=== PATIENT | male | born 1930 | race Caucasian/White ===

== ENCOUNTER 2018-08-25 15:10 | Emergency (ER) | payer MEDICARE ==
[~2018-08-25] VITALS: Ht 167.6 cm; Wt 83.4 kg
[2018-08-25 16:23] VITALS: BP 120/59
== END 2018-08-25 16:37 | disposition home or self-care (01) ==
LOC: ED 16:27
DX: J06.9 Acute upper respiratory infection, unspecified (principal); J45.909 Unspecified asthma, uncomplicated; Z86.73 Personal history of transient ischemic attack (TIA), and cerebral infarction without residual deficits
CPT/HCPCS: 71045; 93005; 99283

== ENCOUNTER 2019-01-25 08:42 | Inpatient (IN) | payer MEDICARE ==
[~2019-01-25] VITALS: Ht 167.6 cm; Wt 81.5 kg
--- NOTE | 2019-01-25 08:51 | NUR ---
Pt BIB EMS from home where pt lives with family for diarrhea x 3 days. Family felt pt was getting worse. Pt received ASA HAT SIZER. Pt has bilateral leg weakness and decresed sensation x [address]om cath in place, draining yellow, clear urine.
[2019-01-25] MEDS ORDERED: ASPI-515 PO (09:01)
[2019-01-25 09:26] LABS: BASOPHILS # (AUTO) 0.05 x10^3/uL (0-0.1); BASOPHILS % (AUTO) 1 % (0-1); EOSINOPHILS # (AUTO) 0.13 x10^3/uL (0-0.4); EOSINOPHILS % (AUTO) 2 % (1-7); LYMPHOCYTES # (AUTO) 0.91 x10^3/uL (1-3.4); LYMPHOCYTES % (AUTO) 11 % (22-44); MD NO; MEAN CORPUSCULAR HEMOGLOBIN 31.4 pg (27.5-34.5); MEAN CORPUSCULAR HGB CONC 33.6 g/dL (33.2-36.2); MEAN CORPUSCULAR VOLUME 93.6 fL (81-97); MEAN PLATELET VOLUME 7.4 fL (7.4-10.4); MONOCYTES # (AUTO) 0.62 x10^3/uL (0.2-0.8); MONOCYTES % (AUTO) 7 % (2-9); NEUTROPHILS # (AUTO) 6.61 x10^3/uL (1.8-6.8); NEUTROPHILS % (AUTO) 79 % (42-75); PLATELET COUNT 433 x10^3/uL (130-400); RED BLOOD COUNT 4.29 x10^6/uL (4.38-5.82); RED CELL DISTRIBUTION WIDTH 13.4 % (9.4-14.8)
--- NOTE | 2019-01-25 09:38 | NUR ---
CT PENDING LAB/CREATINE.
[2019-01-25 09:52] LABS: ALBUMIN 3.4 g/dL (3.4-5.0); CREATININE 1.09 mg/dL (0.7-1.3)
[2019-01-25 10:03] LABS: ANION GAP 6 mmol/L (5-15); CHLORIDE 107 mmol/L (98-107)
--- NOTE | 2019-01-25 10:09 | NUR ---
Report to [facility]
--- NOTE | 2019-01-25 10:21 | NUR ---
pt to ct now.
[2019-01-25] MEDS ORDERED: OMNIPAQUE 350 MG/ML, 100ML BOTTLE ONE (10:51)
[2019-01-25] MEDS ORDERED: hydrALAzine 20 MG/ML, 1ML IVPush PRN (13:00)
[2019-01-25] MEDS: HEPARIN 5,000 UNITS/ML, 1ML SQ SCH (17:17)
[2019-01-25 18:58] VITALS: BP 104/57
[2019-01-25 19:07] LABS: CLOSTRIDIUM DIFFICILE ANTIGEN NEGATIVE; CLOSTRIDIUM DIFFICILE TOXIN NEGATIVE (Negative)
[2019-01-26 00:18] VITALS: BP 103/48
[2019-01-26] MEDS: HEPARIN 5,000 UNITS/ML, 1ML SQ SCH ×3 (00:31→18:28)
[2019-01-26 05:02] LABS: BASOPHILS # (AUTO) 0.04 x10^3/uL (0-0.1); BASOPHILS % (AUTO) 1 % (0-1); EOSINOPHILS % (AUTO) 3 % (1-7); LYMPHOCYTES # (AUTO) 0.97 x10^3/uL (1-3.4); LYMPHOCYTES % (AUTO) 16 % (22-44); MD NO; MEAN CORPUSCULAR HEMOGLOBIN 31.1 pg (27.5-34.5); MEAN CORPUSCULAR HGB CONC 33.1 g/dL (33.2-36.2); MEAN CORPUSCULAR VOLUME 93.9 fL (81-97); MEAN PLATELET VOLUME 7.5 fL (7.4-10.4); MONOCYTES # (AUTO) 0.48 x10^3/uL (0.2-0.8); MONOCYTES % (AUTO) 8 % (2-9); NEUTROPHILS # (AUTO) 4.43 x10^3/uL (1.8-6.8); NEUTROPHILS % (AUTO) 72 % (42-75); PLATELET COUNT 360 x10^3/uL (130-400); RED BLOOD COUNT 4.04 x10^6/uL (4.38-5.82); RED CELL DISTRIBUTION WIDTH 13.4 % (9.4-14.8)
[2019-01-26 05:06] LABS: ANION GAP 6 mmol/L (5-15); CALCIUM 8.8 mg/dL (8.5-10.1); CHLORIDE 110 mmol/L (98-107)
[2019-01-26 05:10] LABS: ALANINE AMINOTRANSFERASE 28 U/L (12-78); ALKALINE PHOSPHATASE 87 U/L (45-117); BILIRUBIN,TOTAL 0.5 mg/dL (0.2-1.0); CREATININE 0.91 mg/dL (0.7-1.3)
[2019-01-26 07:38] VITALS: BP 111/64
[2019-01-26] MEDS: ASPIRIN 81 MG TABLET EC PO SCH (08:52)
[2019-01-26] MEDS ORDERED: GADOBUTROL 7.5 MMOL/7.5 ML PFS ONE (10:49)
[2019-01-26 12:59] VITALS: BP 113/70
[2019-01-26] MEDS: LOPERAMIDE 1 MG/5 ML, 10ML UDC PO PRN ×2 (15:32→21:12)
[2019-01-26] MEDS ORDERED: GABA-826 PO (15:42)
[2019-01-26] MEDS ORDERED: FLUT16SP NAS (15:45)
[2019-01-26] MEDS ORDERED: FURO20TA3 PO (15:47)
[2019-01-26] MEDS ORDERED: FLUO10CA7 PO (15:48)
[2019-01-26] MEDS ORDERED: OMEP20TA9 PO (15:49)
[2019-01-26 18:40] VITALS: BP 120/65
[2019-01-27] MEDS: HEPARIN 5,000 UNITS/ML, 1ML SQ SCH ×3 (01:00→16:11)
[2019-01-27 01:09] VITALS: BP 110/58
[2019-01-27 05:11] LABS: BASOPHILS # (AUTO) 0.03 x10^3/uL (0-0.1); BASOPHILS % (AUTO) 1 % (0-1); EOSINOPHILS # (AUTO) 0.17 x10^3/uL (0-0.4); EOSINOPHILS % (AUTO) 2 % (1-7); LYMPHOCYTES # (AUTO) 0.96 x10^3/uL (1-3.4); LYMPHOCYTES % (AUTO) 13 % (22-44); MD NO; MEAN CORPUSCULAR HEMOGLOBIN 32.1 pg (27.5-34.5); MEAN CORPUSCULAR HGB CONC 34.2 g/dL (33.2-36.2); MEAN CORPUSCULAR VOLUME 93.9 fL (81-97); MEAN PLATELET VOLUME 7.5 fL (7.4-10.4); MONOCYTES % (AUTO) 7 % (2-9); NEUTROPHILS % (AUTO) 77 % (42-75); PLATELET COUNT 417 x10^3/uL (130-400); RED BLOOD COUNT 4.03 x10^6/uL (4.38-5.82); RED CELL DISTRIBUTION WIDTH 13.1 % (9.4-14.8)
[2019-01-27 05:16] LABS: ALBUMIN 3.2 g/dL (3.4-5.0); ANION GAP 6 mmol/L (5-15); CALCIUM 8.6 mg/dL (8.5-10.1); CHLORIDE 104 mmol/L (98-107)
[2019-01-27 05:20] LABS: ALANINE AMINOTRANSFERASE 29 U/L (12-78); ALKALINE PHOSPHATASE 87 U/L (45-117); BILIRUBIN,TOTAL 0.5 mg/dL (0.2-1.0); CREATININE 0.92 mg/dL (0.7-1.3); TOTAL PROTEIN 6.4 g/dL (6.4-8.2)
[2019-01-27 07:36] VITALS: BP 112/77
[2019-01-27] MEDS: FLUOXETINE 10 MG CAP PO SCH (11:29)
[2019-01-27] MEDS ORDERED: LIDOCAINE-MPF 1%, 5ML ONE (12:15)
[2019-01-27 13:17] VITALS: BP 106/64
[2019-01-27] MEDS ORDERED: GADOBUTROL 7.5 MMOL/7.5 ML PFS ONE (13:36)
[2019-01-27] MEDS: ASPIRIN 81 MG TABLET EC PO SCH (16:00)
[2019-01-27] MEDS: FLUTICASONE NASAL SPRAY 16GM NAS SCH (19:46)
[2019-01-27 20:18] VITALS: BP 106/61
[2019-01-27] MEDS: LOPERAMIDE 1 MG/5 ML, 10ML UDC PO PRN (23:55)
[2019-01-28] MEDS: HEPARIN 5,000 UNITS/ML, 1ML SQ SCH ×3 (00:15→17:12)
[2019-01-28 01:16] VITALS: BP 105/45
[2019-01-28 05:31] LABS: CHLORIDE 108 mmol/L (98-107)
[2019-01-28 05:35] LABS: ALANINE AMINOTRANSFERASE 31 U/L (12-78); ALBUMIN 2.9 g/dL (3.4-5.0); ALKALINE PHOSPHATASE 75 U/L (45-117); ANION GAP 5 mmol/L (5-15); BILIRUBIN,TOTAL 0.3 mg/dL (0.2-1.0); CALCIUM 8.7 mg/dL (8.5-10.1); CREATININE 0.89 mg/dL (0.7-1.3); TOTAL PROTEIN 6.2 g/dL (6.4-8.2)
[2019-01-28 05:56] LABS: MEAN CORPUSCULAR HEMOGLOBIN 32.1 pg (27.5-34.5); MEAN CORPUSCULAR VOLUME 94.4 fL (81-97); MEAN PLATELET VOLUME 7.6 fL (7.4-10.4); PLATELET COUNT 337 x10^3/uL (130-400); RED BLOOD COUNT 4.01 x10^6/uL (4.38-5.82); RED CELL DISTRIBUTION WIDTH 13.4 % (9.4-14.8)
[2019-01-28 06:20] LABS: BASOPHILS # (AUTO) 0.05 x10^3/uL (0-0.1); BASOPHILS % (AUTO) 1 % (0-1); EOSINOPHILS # (AUTO) 0.23 x10^3/uL (0-0.4); EOSINOPHILS % (AUTO) 3 % (1-7); LYMPHOCYTES # (AUTO) 1.13 x10^3/uL (1-3.4); LYMPHOCYTES % (AUTO) 15 % (22-44); MD SCAN; MONOCYTES # (AUTO) 0.56 x10^3/uL (0.2-0.8); MONOCYTES % (AUTO) 8 % (2-9); NEUTROPHILS # (AUTO) 5.57 x10^3/uL (1.8-6.8); NEUTROPHILS % (AUTO) 74 % (42-75)
[2019-01-28 07:40] VITALS: BP 100/59
[2019-01-28] MEDS: FLUTICASONE NASAL SPRAY 16GM NAS SCH (08:42)
[2019-01-28] MEDS: FLUOXETINE 10 MG CAP PO SCH (08:43)
[2019-01-28] MEDS: ASPIRIN 81 MG TABLET EC PO SCH (08:43)
[2019-01-28] MEDS ORDERED: GADOBUTROL 7.5 MMOL/7.5 ML PFS ONE (10:42)
[2019-01-28 13:00] VITALS: BP 107/61
[2019-01-28 19:35] VITALS: BP 106/61
[2019-01-28] MEDS: LOPERAMIDE 1 MG/5 ML, 10ML UDC PO PRN (21:44)
[2019-01-29] MEDS: HEPARIN 5,000 UNITS/ML, 1ML SQ SCH ×4 (01:19→21:33)
[2019-01-29 01:51] VITALS: BP 92/51
[2019-01-29 03:18] VITALS: BP 97/57
[2019-01-29] MEDS ORDERED: ACETAMINOPHEN 325 MG TABLET PO ONE (03:30)
[2019-01-29] MEDS ORDERED: SODIUM CHLORIDE 0.9% 1,000ML IVBOLUS ONE (03:30)
[2019-01-29 05:22] VITALS: BP 100/59
[2019-01-29] MEDS: FLUOXETINE 10 MG CAP PO SCH (09:25)
[2019-01-29] MEDS: ASPIRIN 81 MG TABLET EC PO SCH (09:25)
[2019-01-29] MEDS: FLUTICASONE NASAL SPRAY 16GM NAS SCH (09:25)
[2019-01-29] MEDS ORDERED: ACETAMINOPHEN 325 MG TABLET PO PRN (12:00)
[2019-01-29 12:40] VITALS: BP 109/46
[2019-01-29 12:43] LABS: MICROSCOPIC AUTO
[2019-01-29] MEDS ORDERED: OMNIPAQUE 350 MG/ML, 100ML BOTTLE ONE (16:26)
[2019-01-29] MEDS ORDERED: VANCOMYCIN PER PHARMACY MC PRN (17:30)
[2019-01-29] MEDS ORDERED: VANCOMYCIN 1,900 MG in SODIUM CHLORIDE 0.9% 250 ML IV ONE (18:00)
[2019-01-29 19:18] VITALS: BP 104/61
[2019-01-30 01:02] VITALS: BP 113/67
[2019-01-30] MEDS: HEPARIN 5,000 UNITS/ML, 1ML SQ SCH ×3 (05:51→21:03)
[2019-01-30 07:50] VITALS: BP 104/51
[2019-01-30] MEDS: ASPIRIN 81 MG TABLET EC PO SCH (08:24)
[2019-01-30] MEDS: FLUTICASONE NASAL SPRAY 16GM NAS SCH (08:24)
[2019-01-30] MEDS: FLUOXETINE 10 MG CAP PO SCH (08:24)
[2019-01-30 13:11] VITALS: BP 103/55
[2019-01-30] MEDS ORDERED: VANCOMYCIN 1,500 MG in SODIUM CHLORIDE 0.9% 250 ML IV ONE (18:00)
[2019-01-30] MEDS ORDERED: ZOSYN PER PHARMACY MC PRN (20:00)
[2019-01-30] MEDS: CLINDAMYCIN PMX 600MG/50ML 50 ML IV SCH (21:03)
[2019-01-30 21:46] VITALS: BP 111/59
[2019-01-30] MEDS: PIPERACILLIN/TAZO/PMX 3.375GM 50 ML IV SCH (22:16)
[2019-01-31 01:24] VITALS: BP 104/44
[2019-01-31] MEDS: PIPERACILLIN/TAZO/PMX 3.375GM 50 ML IV SCH ×4 (04:10→21:47)
[2019-01-31] MEDS: CLINDAMYCIN PMX 600MG/50ML 50 ML IV SCH ×3 (05:09→22:39)
[2019-01-31] MEDS: HEPARIN 5,000 UNITS/ML, 1ML SQ SCH ×3 (05:09→21:47)
[2019-01-31 07:28] VITALS: BP 103/62
[2019-01-31] MEDS: ASPIRIN 81 MG TABLET EC PO SCH (09:13)
[2019-01-31] MEDS: FLUOXETINE 10 MG CAP PO SCH (09:13)
[2019-01-31] MEDS: FLUTICASONE NASAL SPRAY 16GM NAS SCH (09:15)
[2019-01-31 14:00] VITALS: BP 101/58
[2019-01-31 17:25] LABS: CREATININE 1.02 mg/dL (0.7-1.3)
[2019-01-31 19:36] VITALS: BP 109/64
[2019-02-01 01:25] VITALS: BP 102/53
[2019-02-01] MEDS: PIPERACILLIN/TAZO/PMX 3.375GM 50 ML IV SCH ×4 (04:05→22:16)
[2019-02-01 05:34] LABS: MEAN CORPUSCULAR HEMOGLOBIN 31.3 pg (27.5-34.5); MEAN CORPUSCULAR HGB CONC 33.3 g/dL (33.2-36.2); MEAN CORPUSCULAR VOLUME 94.1 fL (81-97); MEAN PLATELET VOLUME 7.7 fL (7.4-10.4); PLATELET COUNT 417 x10^3/uL (130-400); RED BLOOD COUNT 3.55 x10^6/uL (4.38-5.82); RED CELL DISTRIBUTION WIDTH 13.4 % (9.4-14.8)
[2019-02-01 05:39] LABS: CHLORIDE 103 mmol/L (98-107)
[2019-02-01 05:47] LABS: ALANINE AMINOTRANSFERASE 62 U/L (12-78); ALBUMIN 2.5 g/dL (3.4-5.0); ALKALINE PHOSPHATASE 65 U/L (45-117); ANION GAP 7 mmol/L (5-15); BILIRUBIN,TOTAL 0.4 mg/dL (0.2-1.0); CALCIUM 8.5 mg/dL (8.5-10.1); CREATININE 1.08 mg/dL (0.7-1.3); TOTAL PROTEIN 5.9 g/dL (6.4-8.2)
[2019-02-01] MEDS: HEPARIN 5,000 UNITS/ML, 1ML SQ SCH ×3 (05:50→22:16)
[2019-02-01] MEDS: CLINDAMYCIN PMX 600MG/50ML 50 ML IV SCH ×3 (05:50→23:17)
[2019-02-01 06:11] LABS: BASOPHILS # (AUTO) 0.01 x10^3/uL (0-0.1); BASOPHILS % (AUTO) 0 % (0-1); EOSINOPHILS # (AUTO) 0.02 x10^3/uL (0-0.4); EOSINOPHILS % (AUTO) 0 % (1-7); LYMPHOCYTES # (AUTO) 0.71 x10^3/uL (1-3.4); LYMPHOCYTES % (AUTO) 9 % (22-44); MD SCAN; MONOCYTES # (AUTO) 0.36 x10^3/uL (0.2-0.8); MONOCYTES % (AUTO) 5 % (2-9); NEUTROPHILS # (AUTO) 6.49 x10^3/uL (1.8-6.8); NEUTROPHILS % (AUTO) 85 % (42-75)
[2019-02-01 07:38] VITALS: BP 112/45
[2019-02-01] MEDS: FLUOXETINE 10 MG CAP PO SCH (09:36)
[2019-02-01] MEDS: ASPIRIN 81 MG TABLET EC PO SCH (09:36)
[2019-02-01] MEDS: FLUTICASONE NASAL SPRAY 16GM NAS SCH (09:36)
[2019-02-01 12:50] VITALS: BP 96/47
[2019-02-01 13:29] VITALS: BP 93/45
[2019-02-01 19:06] VITALS: BP 105/54
[2019-02-02 01:21] VITALS: BP 108/56
[2019-02-02] MEDS: PIPERACILLIN/TAZO/PMX 3.375GM 50 ML IV SCH ×4 (04:03→21:57)
[2019-02-02] MEDS: HEPARIN 5,000 UNITS/ML, 1ML SQ SCH ×3 (06:00→23:37)
[2019-02-02] MEDS: CLINDAMYCIN PMX 600MG/50ML 50 ML IV SCH (06:18)
[2019-02-02 06:57] VITALS: BP 120/55
[2019-02-02] MEDS: FLUTICASONE NASAL SPRAY 16GM NAS SCH (09:00)
[2019-02-02] MEDS: FLUOXETINE 10 MG CAP PO SCH (09:26)
[2019-02-02] MEDS: ASPIRIN 81 MG TABLET EC PO SCH (09:26)
[2019-02-02 13:04] VITALS: BP 105/55
[2019-02-02 18:51] VITALS: BP 102/53
[2019-02-03 01:01] VITALS: BP 105/56
[2019-02-03] MEDS: PIPERACILLIN/TAZO/PMX 3.375GM 50 ML IV SCH ×4 (04:05→21:35)
[2019-02-03 07:11] VITALS: BP 138/65
[2019-02-03] MEDS: HEPARIN 5,000 UNITS/ML, 1ML SQ SCH ×2 (08:36→17:21)
[2019-02-03] MEDS: FLUOXETINE 10 MG CAP PO SCH (08:36)
[2019-02-03] MEDS: FLUTICASONE NASAL SPRAY 16GM NAS SCH (08:36)
[2019-02-03] MEDS: ASPIRIN 81 MG TABLET EC PO SCH (08:36)
[2019-02-03] MEDS ORDERED: NITROFURANTOIN 50 MG CAPSULE PO SCH (11:30)
[2019-02-03 12:50] VITALS: BP 107/62
[2019-02-03 19:20] VITALS: BP 111/65
[2019-02-03] MEDS: SULFAMETH./TRIMETHOPRIM DS 800MG/160MG TABLET PO SCH (21:35)
[2019-02-04 01:08] VITALS: BP 109/62
[2019-02-04] MEDS: HEPARIN 5,000 UNITS/ML, 1ML SQ SCH ×3 (03:40→17:00)
[2019-02-04] MEDS: PIPERACILLIN/TAZO/PMX 3.375GM 50 ML IV SCH ×4 (03:40→20:19)
[2019-02-04 05:29] LABS: BASOPHILS # (AUTO) 0.04 x10^3/uL (0-0.1); BASOPHILS % (AUTO) 0 % (0-1); EOSINOPHILS # (AUTO) 0.11 x10^3/uL (0-0.4); EOSINOPHILS % (AUTO) 1 % (1-7); LYMPHOCYTES % (AUTO) 10 % (22-44); MD NO; MEAN CORPUSCULAR HEMOGLOBIN 30.9 pg (27.5-34.5); MEAN CORPUSCULAR VOLUME 93.7 fL (81-97); MEAN PLATELET VOLUME 7.3 fL (7.4-10.4); MONOCYTES # (AUTO) 0.54 x10^3/uL (0.2-0.8); MONOCYTES % (AUTO) 5 % (2-9); NEUTROPHILS # (AUTO) 8.69 x10^3/uL (1.8-6.8); NEUTROPHILS % (AUTO) 84 % (42-75); PLATELET COUNT 486 x10^3/uL (130-400); RED BLOOD COUNT 3.93 x10^6/uL (4.38-5.82); RED CELL DISTRIBUTION WIDTH 13.2 % (9.4-14.8)
[2019-02-04 05:36] LABS: % IRON SATURATION 48 % (20-55); ALANINE AMINOTRANSFERASE 51 U/L (12-78); ALBUMIN 2.5 g/dL (3.4-5.0); ANION GAP 7 mmol/L (5-15); CALCIUM 7.9 mg/dL (8.5-10.1); CHLORIDE 107 mmol/L (98-107); IRON LEVEL 104 mcg/dL (65-175); TOTAL IRON BINDING CAPACITY 216 mcg/dL (250-450)
[2019-02-04 05:40] LABS: ALKALINE PHOSPHATASE 67 U/L (45-117); BILIRUBIN,TOTAL 0.3 mg/dL (0.2-1.0); CREATININE 0.88 mg/dL (0.7-1.3); TOTAL PROTEIN 5.8 g/dL (6.4-8.2)
[2019-02-04 07:29] VITALS: BP 145/69
[2019-02-04] MEDS: ASPIRIN 81 MG TABLET EC PO SCH (08:44)
[2019-02-04] MEDS: FLUOXETINE 10 MG CAP PO SCH (08:44)
[2019-02-04] MEDS: SULFAMETH./TRIMETHOPRIM DS 800MG/160MG TABLET PO SCH ×2 (08:44→20:19)
[2019-02-04] MEDS: FLUTICASONE NASAL SPRAY 16GM NAS SCH (09:00)
[2019-02-04] MEDS: CALCIUM GLUCONATE 4.6 MEQ/10 ML IV SCH ×2 (09:30→13:06)
[2019-02-04] MEDS: ALBUMIN HUMAN 5% 3,000 ML IV SCH (13:07)
[2019-02-04 13:49] VITALS: BP 108/61
[2019-02-04 20:17] VITALS: BP 117/64
[2019-02-05 01:56] VITALS: BP 119/53
[2019-02-05] MEDS: PIPERACILLIN/TAZO/PMX 3.375GM 50 ML IV SCH ×4 (02:36→20:11)
[2019-02-05] MEDS: HEPARIN 5,000 UNITS/ML, 1ML SQ SCH ×3 (02:36→17:11)
[2019-02-05 07:37] LABS: ANION GAP 6 mmol/L (5-15); CHLORIDE 109 mmol/L (98-107); CREATININE 1.07 mg/dL (0.7-1.3)
[2019-02-05 07:41] LABS: BASOPHILS # (AUTO) 0.04 x10^3/uL (0-0.1); BASOPHILS % (AUTO) 0 % (0-1); EOSINOPHILS # (AUTO) 0.52 x10^3/uL (0-0.4); EOSINOPHILS % (AUTO) 4 % (1-7); LYMPHOCYTES # (AUTO) 1.08 x10^3/uL (1-3.4); LYMPHOCYTES % (AUTO) 8 % (22-44); MD NO; MEAN CORPUSCULAR HGB CONC 32.7 g/dL (33.2-36.2); MEAN CORPUSCULAR VOLUME 94.8 fL (81-97); MEAN PLATELET VOLUME 7.4 fL (7.4-10.4); MONOCYTES % (AUTO) 5 % (2-9); NEUTROPHILS # (AUTO) 10.98 x10^3/uL (1.8-6.8); NEUTROPHILS % (AUTO) 83 % (42-75); PLATELET COUNT 503 x10^3/uL (130-400); RED BLOOD COUNT 4.32 x10^6/uL (4.38-5.82); RED CELL DISTRIBUTION WIDTH 13.6 % (9.4-14.8)
[2019-02-05] MEDS: FLUTICASONE NASAL SPRAY 16GM NAS SCH (08:25)
[2019-02-05] MEDS: ASPIRIN 81 MG TABLET EC PO SCH (08:26)
[2019-02-05] MEDS: FLUOXETINE 10 MG CAP PO SCH (08:26)
[2019-02-05] MEDS: SULFAMETH./TRIMETHOPRIM DS 800MG/160MG TABLET PO SCH ×2 (08:26→20:11)
[2019-02-05 08:40] VITALS: BP 119/62
[2019-02-05] MEDS: CALCIUM GLUCONATE 4.6 MEQ/10 ML IV SCH (11:42)
[2019-02-05] MEDS: ALBUMIN HUMAN 5% 3,000 ML IV SCH (11:43)
[2019-02-05 13:45] VITALS: BP 116/69
[2019-02-05 19:15] VITALS: BP 109/54
[2019-02-06] VITALS (11 sets, daily range): BP systolic 106–120; BP diastolic 55–71
[2019-02-06] MEDS: HEPARIN 5,000 UNITS/ML, 1ML SQ SCH ×3 (01:54→17:49)
[2019-02-06] MEDS: PIPERACILLIN/TAZO/PMX 3.375GM 50 ML IV SCH ×4 (01:54→22:44)
[2019-02-06 05:18] LABS: BASOPHILS # (AUTO) 0.06 x10^3/uL (0-0.1); BASOPHILS % (AUTO) 1 % (0-1); EOSINOPHILS # (AUTO) 0.41 x10^3/uL (0-0.4); EOSINOPHILS % (AUTO) 4 % (1-7); LYMPHOCYTES % (AUTO) 12 % (22-44); MD NO; MEAN CORPUSCULAR HEMOGLOBIN 31.6 pg (27.5-34.5); MEAN CORPUSCULAR HGB CONC 33.6 g/dL (33.2-36.2); MEAN CORPUSCULAR VOLUME 93.9 fL (81-97); MEAN PLATELET VOLUME 7.3 fL (7.4-10.4); MONOCYTES # (AUTO) 0.54 x10^3/uL (0.2-0.8); MONOCYTES % (AUTO) 6 % (2-9); NEUTROPHILS # (AUTO) 7.43 x10^3/uL (1.8-6.8); NEUTROPHILS % (AUTO) 78 % (42-75); PLATELET COUNT 400 x10^3/uL (130-400); RED BLOOD COUNT 3.89 x10^6/uL (4.38-5.82); RED CELL DISTRIBUTION WIDTH 13.4 % (9.4-14.8)
[2019-02-06 05:21] LABS: CHLORIDE 111 mmol/L (98-107)
[2019-02-06 05:24] LABS: ANION GAP 6 mmol/L (5-15); CALCIUM 8.3 mg/dL (8.5-10.1); CREATININE 0.97 mg/dL (0.7-1.3)
[2019-02-06] MEDS: FLUTICASONE NASAL SPRAY 16GM NAS SCH (08:43)
[2019-02-06] MEDS: ASPIRIN 81 MG TABLET EC PO SCH (09:11)
[2019-02-06] MEDS: FLUOXETINE 10 MG CAP PO SCH (09:12)
[2019-02-06] MEDS: SULFAMETH./TRIMETHOPRIM DS 800MG/160MG TABLET PO SCH ×2 (09:12→22:43)
[2019-02-06] MEDS ORDERED: ALBUMIN HUMAN 5% 3,000 ML IV SCH (11:30)
[2019-02-06] MEDS: ALBUMIN HUMAN 5% 1,500 ML IV SCH (16:07)
[2019-02-06] MEDS: CALCIUM GLUCONATE 4.6 MEQ/10 ML IV SCH (16:07)
[2019-02-07 00:10] VITALS: BP 127/69
[2019-02-07] MEDS: HEPARIN 5,000 UNITS/ML, 1ML SQ SCH ×3 (01:37→17:52)
[2019-02-07] MEDS: AMPICILLIN/SULBACTAM 3 GM in SODIUM CHLORIDE 0.9% 100 ML IV SCH ×4 (04:39→23:03)
[2019-02-07 05:37] LABS: BASOPHILS # (AUTO) 0.04 x10^3/uL (0-0.1); BASOPHILS % (AUTO) 0 % (0-1); EOSINOPHILS # (AUTO) 0.35 x10^3/uL (0-0.4); EOSINOPHILS % (AUTO) 4 % (1-7); LYMPHOCYTES # (AUTO) 1.25 x10^3/uL (1-3.4); LYMPHOCYTES % (AUTO) 13 % (22-44); MD NO; MEAN CORPUSCULAR HEMOGLOBIN 32.4 pg (27.5-34.5); MEAN CORPUSCULAR HGB CONC 34.6 g/dL (33.2-36.2); MEAN CORPUSCULAR VOLUME 93.6 fL (81-97); MEAN PLATELET VOLUME 7.5 fL (7.4-10.4); MONOCYTES # (AUTO) 0.64 x10^3/uL (0.2-0.8); MONOCYTES % (AUTO) 6 % (2-9); NEUTROPHILS # (AUTO) 7.71 x10^3/uL (1.8-6.8); NEUTROPHILS % (AUTO) 77 % (42-75); PLATELET COUNT 389 x10^3/uL (130-400); RED BLOOD COUNT 3.84 x10^6/uL (4.38-5.82); RED CELL DISTRIBUTION WIDTH 13.9 % (9.4-14.8)
[2019-02-07 05:57] LABS: CHLORIDE 110 mmol/L (98-107)
[2019-02-07 06:13] LABS: ANION GAP 7 mmol/L (5-15); CALCIUM 8.3 mg/dL (8.5-10.1)
[2019-02-07 08:25] VITALS: BP 112/68
[2019-02-07] MEDS: ASPIRIN 81 MG TABLET EC PO SCH (10:17)
[2019-02-07] MEDS: SULFAMETH./TRIMETHOPRIM DS 800MG/160MG TABLET PO SCH ×2 (10:17→20:28)
[2019-02-07] MEDS: FLUOXETINE 10 MG CAP PO SCH (10:17)
[2019-02-07 12:55] VITALS: BP 124/61
[2019-02-07 20:02] VITALS: BP 126/65
[2019-02-07] MEDS: FLUTICASONE NASAL SPRAY 16GM NAS SCH (20:28)
[2019-02-08 01:31] VITALS: BP 114/61
[2019-02-08] MEDS: HEPARIN 5,000 UNITS/ML, 1ML SQ SCH ×3 (03:24→18:29)
[2019-02-08] MEDS: AMPICILLIN/SULBACTAM 3 GM in SODIUM CHLORIDE 0.9% 100 ML IV SCH ×3 (04:36→18:29)
[2019-02-08 05:43] LABS: BASOPHILS # (AUTO) 0.03 x10^3/uL (0-0.1); BASOPHILS % (AUTO) 0 % (0-1); EOSINOPHILS # (AUTO) 0.25 x10^3/uL (0-0.4); EOSINOPHILS % (AUTO) 3 % (1-7); LYMPHOCYTES # (AUTO) 1.05 x10^3/uL (1-3.4); LYMPHOCYTES % (AUTO) 12 % (22-44); MD NO; MEAN CORPUSCULAR HEMOGLOBIN 31.2 pg (27.5-34.5); MEAN CORPUSCULAR VOLUME 94.6 fL (81-97); MEAN PLATELET VOLUME 7.6 fL (7.4-10.4); MONOCYTES # (AUTO) 0.53 x10^3/uL (0.2-0.8); MONOCYTES % (AUTO) 6 % (2-9); NEUTROPHILS # (AUTO) 7.17 x10^3/uL (1.8-6.8); NEUTROPHILS % (AUTO) 79 % (42-75); PLATELET COUNT 349 x10^3/uL (130-400); RED BLOOD COUNT 3.98 x10^6/uL (4.38-5.82); RED CELL DISTRIBUTION WIDTH 13.7 % (9.4-14.8)
[2019-02-08 05:47] LABS: ANION GAP 4 mmol/L (5-15); CALCIUM 8.6 mg/dL (8.5-10.1); CHLORIDE 108 mmol/L (98-107); CREATININE 0.93 mg/dL (0.7-1.3)
[2019-02-08 08:02] VITALS: BP 123/62
[2019-02-08] MEDS: FLUOXETINE 10 MG CAP PO SCH (08:47)
[2019-02-08] MEDS: ASPIRIN 81 MG TABLET EC PO SCH (08:47)
[2019-02-08] MEDS: SULFAMETH./TRIMETHOPRIM DS 800MG/160MG TABLET PO SCH ×2 (08:47→20:15)
[2019-02-08 13:12] VITALS: BP 146/77
[2019-02-08] MEDS: CALCIUM GLUCONATE 4.6 MEQ/10 ML IV SCH (18:37)
[2019-02-08] MEDS: ALBUMIN HUMAN 5% 1,500 ML IV SCH (18:38)
[2019-02-08 19:33] VITALS: BP 104/62
[2019-02-08] MEDS: FLUTICASONE NASAL SPRAY 16GM NAS SCH (20:16)
[2019-02-09] MEDS: AMPICILLIN/SULBACTAM 3 GM in SODIUM CHLORIDE 0.9% 100 ML IV SCH ×4 (00:38→18:33)
[2019-02-09] MEDS: HEPARIN 5,000 UNITS/ML, 1ML SQ SCH ×3 (02:37→21:12)
[2019-02-09 02:51] VITALS: BP 132/72
[2019-02-09 06:33] LABS: BASOPHILS # (AUTO) 0.05 x10^3/uL (0-0.1); BASOPHILS % (AUTO) 1 % (0-1); EOSINOPHILS # (AUTO) 0.32 x10^3/uL (0-0.4); EOSINOPHILS % (AUTO) 3 % (1-7); LYMPHOCYTES # (AUTO) 1.31 x10^3/uL (1-3.4); LYMPHOCYTES % (AUTO) 13 % (22-44); MD NO; MEAN CORPUSCULAR HEMOGLOBIN 32.1 pg (27.5-34.5); MEAN CORPUSCULAR VOLUME 94.4 fL (81-97); MEAN PLATELET VOLUME 7.4 fL (7.4-10.4); MONOCYTES # (AUTO) 0.61 x10^3/uL (0.2-0.8); MONOCYTES % (AUTO) 6 % (2-9); NEUTROPHILS # (AUTO) 7.53 x10^3/uL (1.8-6.8); NEUTROPHILS % (AUTO) 77 % (42-75); PLATELET COUNT 385 x10^3/uL (130-400); RED BLOOD COUNT 4.13 x10^6/uL (4.38-5.82); RED CELL DISTRIBUTION WIDTH 14.4 % (9.4-14.8)
[2019-02-09 06:38] LABS: ANION GAP 6 mmol/L (5-15); CALCIUM 8.5 mg/dL (8.5-10.1); CHLORIDE 111 mmol/L (98-107); CREATININE 0.84 mg/dL (0.7-1.3)
[2019-02-09 07:21] VITALS: BP 125/63
[2019-02-09] MEDS ORDERED: ALBUMIN HUMAN 5% 3,000 ML IV SCH (08:00)
[2019-02-09] MEDS: SULFAMETH./TRIMETHOPRIM DS 800MG/160MG TABLET PO SCH ×2 (08:42→21:12)
[2019-02-09] MEDS: FLUOXETINE 10 MG CAP PO SCH (08:42)
[2019-02-09] MEDS: ASPIRIN 81 MG TABLET EC PO SCH (08:42)
[2019-02-09] MEDS: CALCIUM GLUCONATE 4.6 MEQ/10 ML IV SCH (10:39)
[2019-02-09 12:58] VITALS: BP 123/65
[2019-02-09 19:01] VITALS: BP 107/63
[2019-02-09] MEDS: FLUTICASONE NASAL SPRAY 16GM NAS SCH (21:12)
[2019-02-10] VITALS (8 sets, daily range): BP systolic 96–118; BP diastolic 59–71
[2019-02-10] MEDS: AMPICILLIN/SULBACTAM 3 GM in SODIUM CHLORIDE 0.9% 100 ML IV SCH ×3 (00:07→12:26)
[2019-02-10] MEDS: HEPARIN 5,000 UNITS/ML, 1ML SQ SCH ×2 (05:16→12:25)
[2019-02-10 05:18] LABS: ANION GAP 6 mmol/L (5-15); CALCIUM 8.6 mg/dL (8.5-10.1); CHLORIDE 110 mmol/L (98-107)
[2019-02-10 05:19] LABS: CREATININE 0.86 mg/dL (0.7-1.3)
[2019-02-10 05:24] LABS: BASOPHILS # (AUTO) 0.07 x10^3/uL (0-0.1); BASOPHILS % (AUTO) 1 % (0-1); EOSINOPHILS % (AUTO) 2 % (1-7); LYMPHOCYTES # (AUTO) 1.32 x10^3/uL (1-3.4); LYMPHOCYTES % (AUTO) 10 % (22-44); MD NO; MEAN CORPUSCULAR HGB CONC 33.4 g/dL (33.2-36.2); MEAN CORPUSCULAR VOLUME 95.8 fL (81-97); MEAN PLATELET VOLUME 7.6 fL (7.4-10.4); MONOCYTES # (AUTO) 0.77 x10^3/uL (0.2-0.8); MONOCYTES % (AUTO) 6 % (2-9); NEUTROPHILS # (AUTO) 10.41 x10^3/uL (1.8-6.8); NEUTROPHILS % (AUTO) 81 % (42-75); PLATELET COUNT 376 x10^3/uL (130-400); RED BLOOD COUNT 4.15 x10^6/uL (4.38-5.82); RED CELL DISTRIBUTION WIDTH 14.7 % (9.4-14.8)
[2019-02-10] MEDS ORDERED: CALCIUM GLUCONATE 4.6 MEQ/10 ML IV SCH (08:00)
[2019-02-10] MEDS: FLUTICASONE NASAL SPRAY 16GM NAS SCH (08:00)
[2019-02-10] MEDS: SULFAMETH./TRIMETHOPRIM DS 800MG/160MG TABLET PO SCH (08:01)
[2019-02-10] MEDS: ASPIRIN 81 MG TABLET EC PO SCH (08:01)
[2019-02-10] MEDS: FLUOXETINE 10 MG CAP PO SCH (08:01)
[2019-02-10] MEDS: ALBUMIN HUMAN 5% 1,500 ML IV SCH (11:24)
[2019-02-10] MEDS ORDERED: AMPI3VIA IV (13:14)
== END 2019-02-10 16:50 | DRG 97 ==
LOC: ED 09:39 → EDIP 12:34 → 3NE 13:28 → 4EST 02-06 12:36 → 4WST 02-09 02:56
PROVIDERS: ADMIT Internal Medicine; ATTEND Internal Medicine
PROC: 0T9B70Z Drainage of Bladder with Drainage Device, Via Natural or Artificial Opening (ICD-10-PCS; 2019-01-29)
PROC: 009U3ZX Drainage of Spinal Canal, Percutaneous Approach, Diagnostic (ICD-10-PCS; 2019-01-29)
PROC: B01B1ZZ Fluoroscopy of Spinal Cord using Low Osmolar Contrast (ICD-10-PCS; 2019-01-29)
PROC: 02HV33Z Insertion of Infusion Device into Superior Vena Cava, Percutaneous Approach (ICD-10-PCS; principal; 2019-02-03)
PROC: B5181ZA Fluoroscopy of Superior Vena Cava using Low Osmolar Contrast, Guidance (ICD-10-PCS; 2019-02-03)
PROC: B548ZZA Ultrasonography of Superior Vena Cava, Guidance (ICD-10-PCS; 2019-02-03)
PROC: 5A1D70Z Performance of Urinary Filtration, Intermittent, Less than 6 Hours Per Day (ICD-10-PCS; 2019-02-04)
PROC: 5A1D70Z Performance of Urinary Filtration, Intermittent, Less than 6 Hours Per Day (ICD-10-PCS; 2019-02-05)
PROC: 30233K1 Transfusion of Nonautologous Frozen Plasma into Peripheral Vein, Percutaneous Approach (ICD-10-PCS; 2019-02-06)
PROC: 30233R1 Transfusion of Nonautologous Platelets into Peripheral Vein, Percutaneous Approach (ICD-10-PCS; 2019-02-06)
PROC: 5A1D70Z Performance of Urinary Filtration, Intermittent, Less than 6 Hours Per Day (ICD-10-PCS; 2019-02-06)
PROC: 5A1D70Z Performance of Urinary Filtration, Intermittent, Less than 6 Hours Per Day (ICD-10-PCS; 2019-02-08)
PROC: 5A1D70Z Performance of Urinary Filtration, Intermittent, Less than 6 Hours Per Day (ICD-10-PCS; 2019-02-09)
PROC: 5A1D70Z Performance of Urinary Filtration, Intermittent, Less than 6 Hours Per Day (ICD-10-PCS; 2019-02-10)
DX: G37.3 Acute transverse myelitis in demyelinating disease of central nervous system (principal); E43 Unspecified severe protein-calorie malnutrition; E46 Unspecified protein-calorie malnutrition; M54.17 Radiculopathy, lumbosacral region; K52.9 Noninfective gastroenteritis and colitis, unspecified; Z66 Do not resuscitate; Z86.73 Personal history of transient ischemic attack (TIA), and cerebral infarction without residual deficits; B96.7 Clostridium perfringens [C. perfringens] as the cause of diseases classified elsewhere; B96.89 Other specified bacterial agents as the cause of diseases classified elsewhere; D64.9 Anemia, unspecified; G82.20 Paraplegia, unspecified; J45.909 Unspecified asthma, uncomplicated; K21.9 Gastro-esophageal reflux disease without esophagitis; K29.70 Gastritis, unspecified, without bleeding; M48.061 Spinal stenosis, lumbar region without neurogenic claudication; N19 Unspecified kidney failure; R32 Unspecified urinary incontinence; R62.7 Adult failure to thrive; Z16.11 Resistance to penicillins; Z77.090 Contact with and (suspected) exposure to asbestos; Z80.9 Family history of malignant neoplasm, unspecified; Z85.46 Personal history of malignant neoplasm of prostate; Z87.891 Personal history of nicotine dependence; Z68.29 Body mass index [BMI] 29.0-29.9, adult; Z90.49 Acquired absence of other specified parts of digestive tract
CPT/HCPCS: 36415; 36514; 36556; 70553; 72148; 72149; 72157; 74177; 76937; 77001; 77003; 80048; 80053; 81001; 82040; 82042; 82565; 82728; 82784; 83520; 83540; 83550; 83735; 83873; 85025; 85384; 86645; 86695; 86696; 86762; 86777; 86778; 86850; 86900; 87040; 87076; 87077; 87086; 87186; 87324; 88108; 89055; 93005; 93306; 99285; A9585; C1894; G0103; G0378; J0295; J1644; J2543; J2930; J3370; P9045; Q9967; C1751; J0610; J1642; J7030; J7050; P9017

== ENCOUNTER → 2019-03-05 | Outpatient (CLI) | payer MEDICARE ==
[~2019-03-05] MED LIST: AMPI3VIA IV; ASPI-515 PO; FLUO10CA7 PO; FLUT16SP NAS; FURO20TA3 PO; GABA-826 PO; OMEP20TA9 PO
== END | disposition home or self-care (01) ==
LOC: RAD 09:43
PROVIDERS: ATTEND Orthopaedic Surgery
DX: M47.815 Spondylosis without myelopathy or radiculopathy, thoracolumbar region (principal); M48.02 Spinal stenosis, cervical region; M51.24 Other intervertebral disc displacement, thoracic region
CPT/HCPCS: 72146